=== PATIENT | female | born 1970 | race Hispanic/Latino ===

== ENCOUNTER → 2020-02-10 | Day surgery (SDC) | payer MEDICARE, OTHER ==
[2020-02-06 10:21] LABS: BASOPHILS % 0.4 % (0.0-1.0); EOSINOPHILS # (AUTO) 0.1 (0.0-0.4); EOSINOPHILS % 1.3 % (0.0-6.0); HEMATOCRIT 36.3 % (34.2-44.1); HEMOGLOBIN 11.8 g/dL (12.0-16.0); LYMPHOCYTES # (AUTO) 1.5 (1.0-3.2); LYMPHOCYTES % 18.2 % (18.0-39.1); MEAN CORPUSCULAR HEMOGLOBIN 26.7 pg (28-32); MEAN CORPUSCULAR HGB CONC 32.5 g/dL (31-35); MEAN CORPUSCULAR VOLUME 82.1 fL (81-99); MONOCYTES # (AUTO) 0.6 (0.2-0.8); MONOCYTES % 7.7 % (4.4-11.3); NEUTROPHILS # (AUTO) 5.9 (2.1-6.9); PLATELET COUNT 266 x10e3/uL (140-360); RED BLOOD COUNT 4.42 x10e6/uL (3.6-5.1); RED CELL DISTRIBUTION WIDTH 12.8 % (11.7-14.4)
[2020-02-06 10:38] LABS: INR 0.87; PROTHROMBIN TIME 12.3 seconds (11.9-14.5)
[2020-02-06 10:39] LABS: PARTIAL THROMBOPLASTIN TIME 29.8 seconds (23.8-35.5)
[2020-02-06 10:40] LABS: ANION GAP 11.6 mmol/L (8-16); CALCIUM 9.1 mg/dL (8.4-10.2); CREATININE, SERUM 1.24 mg/dL (0.57-1.11); POTASSIUM 3.6 mmol/L (3.5-5.1)
[~2020-02-10] VITALS: Ht 149.9 cm; Wt 84.4 kg
[~2020-02-10] MED LIST: ASPIRIN81 MG PO; BENZOCAINE 20% SPR 60 ML CAN ONE; CEPHALEXIN500 MG PO; FUROSEMIDE40 MG PO; LIDOCAINE 1% W/EPINEPHRINE 20 ML VIAL ONE; LIDOCAINE HCL 2% LOCAL INJ 5 ML SDV VIAL INJ ONE; METFORMIN HCL500 MG PO; METOPROLOL TART50 MG PO; MIDAZOLAM HCL 2 MG/2 ML VIAL ONE; NIFEDIPINE ER30 M1 PO; PROPOFOL IV EMULSION 10 MG/ML 20 ML VIAL ONE; SIMVASTATIN20 MG PO; SODIUM CHLORIDE 0.9% 1000ML 1,000 ML ONE; TRADJENTA5 MG PO; VANCOMYCIN 1GM/NS 250 ML 250 ML ONE
[2020-02-10 08:04] VITALS: BP 170/81
[2020-02-10 10:00] VITALS: BP 166/75
[2020-02-10 10:15] VITALS: BP_SYST 157; BP_SYST 159; BP_DIAS 70; BP_DIAS 72
[2020-02-10 10:30] VITALS: BP 157/66
--- NOTE | 2020-02-10 10:35 | NUR ---
MARGARETH: 0936-- IN ROOM 0940-- HURRICAINE SPRAY X2 0945-- DR IN ROOM 0951-- PROBE IN 0956-- BUBBLE STUDY 0957-- PROBE OUT 59-- OUT OF ROOM RETURNED TO ACU 9 FOR RECOVERY
[2020-02-10 10:45] VITALS: BP 165/65
[2020-02-10 11:00] VITALS: BP 167/69
--- NOTE | 2020-02-10 18:35 | Operative Report ---
DATE OF PROCEDURE: 02/10/2020 SURGEON: Myles Anaya MD SOFTWARE DEVELOPMENT ADVISOR: Myles Anaya MD from [facility]ventional [facility]iology. 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 PROCEDURE PERFORMED: 1. Medtronic model 38422 with [place] patient monitor, serial #[id number] provided to patient. 2. Medtronic Reveal LINQ11, serial #[id number] implantable loop recorder implant. COMPLICATIONS: None. ESTIMATED BLOOD LOSS: Less than 15 mL. PROCEDURE SUMMARY: The patient underwent local administration of 2% lidocaine with epinephrine. After sterile prep and drape, vancomycin 1 g was administered throughout the procedure. A minocycline prescription for the following week was provided to patient after the procedure was completed. After initial incision in the 5th intercostal space and left parasternal aspect 2 cm away from upper sternal border, blunt dissection was performed with local lidocaine and epinephrine. The device was deployed and after hemostasis achieved, Dermabond applied followed by Steri-Strips on top and then covered with Tegaderm. The procedure was terminated without any complications after completion. Device was programmed for cryptogenic stroke. CONCLUSION: ILR implant. Recommend minocycline for one week. Outpatient followup in 10-14 days. Myles Anaya MD AFV/MODL /[id number]
== END | disposition home or self-care (01) ==
LOC: CATH LAB 07:11
PROVIDERS: ATTEND Internal Medicine Cardiovascular Disease
DX: I63.9 Cerebral infarction, unspecified (principal); I70.0 Atherosclerosis of aorta; I10 Essential (primary) hypertension; E11.9 Type 2 diabetes mellitus without complications; F41.9 Anxiety disorder, unspecified; Z01.812 Encounter for preprocedural laboratory examination; Z11.59 Encounter for screening for other viral diseases; Z79.82 Long term (current) use of aspirin; Z79.84 Long term (current) use of oral hypoglycemic drugs
CPT/HCPCS: 33285; 36415 ×2; 80048; 82948; 84702; 85025; 85610; 85730; 93312; 93320; 93325; C1764; J2001; J2250; J2704; J3370; J7030; U0002; 93307